=== PATIENT | female | born 1995 | race Caucasian/White ===

== ENCOUNTER 2016-10-11 19:02 | Emergency (ER) | payer BC ==
[~2016-10-11] VITALS: Ht 170.2 cm; Wt 127.0 kg
[~2016-10-11 19:02] MED LIST: ATIVAN0.5 MG PO; CARAFATE 1 GM TA1 G1 PO; CIPRO500 MG PO; DOXYCYCLINE 10100 MG PO; EDTA; FLAGYL500 MG PO; FLEXERIL PO; IBUPROFEN 600600 M1 PO; LEVOTHYROXIN0.025 MG PO; LEXAPRO 10 MG T10 M2 PO; MOBIC15 MG PO; NAPROSYN500 MG PO; NASONEX17 GM NASAL; NORCO 5-325 TA1 EACH PO; NORFLEX100 MG PO; PAXIL10 MG PO; PHENERGAN 25 MG25 M1 PO; VITAMIN D 5050000 I1 PO; ZANTAC 150MG T150 MG PO; [UNRECOGNIZED DRUG - REMARK]
[2016-10-11] MEDS ORDERED: TIROSINT25 MCG PO (19:20)
[2016-10-11] MEDS ORDERED: BYSTOLIC 5 MG5 M1 PO (19:21)
[2016-10-11 20:02] LABS: URINE BILIRUBIN NEGATIVE (Negative); URINE BLOOD NEGATIVE (Negative); URINE COLOR YELLOW; URINE GLUCOSE-RANDOM* NEGATIVE (Negative); URINE KETONES NEGATIVE (Negative); URINE NITRITE NEGATIVE (Negative); URINE PROTEIN (DIPSTICK) NEGATIVE (Negative); URINE UROBILINOGEN 0.2 E.U./dl (0.2-1.0)
[2016-10-11 20:03] LABS: HEMATOCRIT 38.8 % (37.0-47.0); MCV 82.7 fL (80.0-100.0)
[2016-10-11 20:04] LABS: BASOPHILS 0.7 % (0.0-2.0); EOSINOPHILS 1.5 % (0.0-3.0); HEMOGLOBIN 13.3 gm/dL (12.0-15.0); MCH 28.3 pg (26.0-34.0); MCHC 34.2 % (28.0-37.0); MONOCYTES 5.2 % (1.0-8.0); PLATELET COUNT 244 thou/uL (150-400); POLYS 61.6 % (36.0-66.0); RBC 4.69 mil/uL (4.20-5.00); RDW 13.2 % (10.5-14.5); WBC 14.4 thou/uL (4.0-11.0)
[2016-10-11 20:10] LABS: CALCIUM 8.8 mg/dL (8.5-10.1); CREATININE 0.7 mg/dL (0.6-1.3); POTASSIUM 4.9 mmol/L (3.5-5.1)
[2016-10-11 20:16] LABS: MANUAL DIFF NO
[2016-10-11] MEDS ORDERED: AMOXICILLIN500 M1 PO (20:24)
[2016-10-11 20:51] VITALS: BP 113/67
== END 2016-10-11 20:54 | disposition home or self-care (01) ==
LOC: ER 19:02
PROVIDERS: Nurse Practitioner
DX: H66.91 Otitis media, unspecified, right ear (principal); J06.9 Acute upper respiratory infection, unspecified; F41.9 Anxiety disorder, unspecified; G51.0 Bell's palsy; E06.3 Autoimmune thyroiditis

== ENCOUNTER 2017-04-22 23:14 | Emergency (ER) | payer BC ==
[~2017-04-22] VITALS: Ht 167.6 cm; Wt 127.0 kg
[~2017-04-22 23:14] MED LIST changes: +AMOXICILLIN500 M1 PO; +BYSTOLIC 5 MG5 M1 PO; +TIROSINT25 MCG PO
[2017-04-22] MEDS ORDERED: TIROSINT50 MCG PO (23:21)
[2017-04-23 00:03] LABS: URINE BILIRUBIN NEGATIVE (Negative); URINE BLOOD TRACE (Negative); URINE COLOR YELLOW; URINE GLUCOSE-RANDOM* NEGATIVE (Negative); URINE KETONES NEGATIVE (Negative); URINE NITRITE NEGATIVE (Negative); URINE PROTEIN (DIPSTICK) NEGATIVE (Negative)
[2017-04-23 00:45] VITALS: BP 124/81
== END 2017-04-23 00:45 | disposition home or self-care (01) ==
LOC: ER 23:14
PROVIDERS: Emergency Medicine
DX: N89.8 Other specified noninflammatory disorders of vagina (principal); T74.21XA Adult sexual abuse, confirmed, initial encounter; F41.9 Anxiety disorder, unspecified; G51.0 Bell's palsy; E05.90 Thyrotoxicosis, unspecified without thyrotoxic crisis or storm; E28.2 Polycystic ovarian syndrome; E06.3 Autoimmune thyroiditis; Y07.9 Unspecified perpetrator of maltreatment and neglect

== ENCOUNTER 2017-05-06 14:11 | Emergency (ER) | payer BC ==
[~2017-05-06] VITALS: Ht 167.6 cm; Wt 127.0 kg
[~2017-05-06 14:11] MED LIST changes: +TIROSINT50 MCG PO
[2017-05-06 14:39] LABS: URINE BILIRUBIN NEGATIVE (Negative); URINE BLOOD 3+ (Negative); URINE GLUCOSE-RANDOM* NEGATIVE (Negative); URINE KETONES NEGATIVE (Negative); URINE LEUKOCYTES-REFLEX NEGATIVE (Negative); URINE PROTEIN (DIPSTICK) NEGATIVE (Negative); URINE UROBILINOGEN 0.2 E.U./dl (0.2-1.0)
[2017-05-06 14:43] LABS: URINE COLOR REDDISH
[2017-05-06 14:44] LABS: CASTS None Seen /LPF (None Seen); CRYSTALS None Seen /LPF (None Seen); SQUAMOUS 0-3 Few /LPF (0-3); URINE RBC >20 Many /HPF (0-2); URINE WBC-REFLEX None Seen /HPF (0-5)
[2017-05-06 14:48] LABS: ABSOLUTE NEUTROPHILS 5.4 thou/uL (1.4-8.2); BASOPHILS 0.5 % (0.0-2.0); EOSINOPHILS 1.3 % (0.0-3.0); HEMATOCRIT 42.2 % (37.0-47.0); LYMPHOCYTES 25.7 % (24.0-44.0); MANUAL DIFF NO; MCH 28.6 pg (26.0-34.0); MCHC 33.1 g/dL (28.0-37.0); MCV 86.3 fL (80.0-100.0); MONOCYTES 5.6 % (1.0-8.0); PLATELET COUNT 254 thou/uL (150-400); POLYS 66.9 % (36.0-66.0); RBC 4.89 mil/uL (4.20-5.00); RDW 12.6 % (10.5-14.5); WBC 8.1 thou/uL (4.0-11.0)
[2017-05-06 15:00] LABS: CALCIUM 8.9 mg/dL (8.5-10.1); CREATININE 0.8 mg/dL (0.6-1.0); MAGNESIUM 1.9 mg/dL (1.8-2.4); POTASSIUM 4.4 mmol/L (3.5-5.1)
[2017-05-06 16:28] VITALS: BP 125/47
[2017-05-10 05:43] LABS: CHLAMYDIA TRACHOMATIS-PCR Negative (Negative); NEISSERIA GONORRHEA-PCR Negative (Negative)
== END 2017-05-06 16:31 | disposition home or self-care (01) ==
LOC: ER 14:11
PROVIDERS: Emergency Medicine
DX: T83.39XA Other mechanical complication of intrauterine contraceptive device, initial encounter (principal); F41.9 Anxiety disorder, unspecified; G51.0 Bell's palsy; E05.90 Thyrotoxicosis, unspecified without thyrotoxic crisis or storm; E55.9 Vitamin D deficiency, unspecified; E06.3 Autoimmune thyroiditis

== ENCOUNTER 2017-10-14 22:22 | Emergency (ER) | payer BC ==
[~2017-10-14] VITALS: Ht 167.6 cm; Wt 129.3 kg
[2017-10-14] MEDS ORDERED: KEFLEX500 M1 PO (22:44)
[2018-05-25] MEDS ORDERED: DOXYCYCLINE 10100 MG PO (08:12)
[2018-05-26] MEDS ORDERED: ONDANSETRON HCL4 M2 PO (18:19)
[2018-05-26] MEDS ORDERED: NAPROSYN500 MG PO (18:19)
== END 2017-10-15 00:50 | disposition home or self-care (01) ==
LOC: ER 22:22
DX: S61.201A Unspecified open wound of left index finger without damage to nail, initial encounter (principal); G51.0 Bell's palsy; F41.9 Anxiety disorder, unspecified; E03.9 Hypothyroidism, unspecified; E28.2 Polycystic ovarian syndrome; E06.3 Autoimmune thyroiditis; M35.9 Systemic involvement of connective tissue, unspecified; W26.0XXA Contact with knife, initial encounter; Y93.89 Activity, other specified; Y92.89 Other specified places as the place of occurrence of the external cause; Y99.2 Volunteer activity

== ENCOUNTER 2018-02-28 05:23 | Emergency (ER) | payer BC ==
[~2018-02-28] VITALS: Ht 167.6 cm; Wt 129.3 kg
--- NOTE | ~2018-02-28 | EKG ---
[place] [address] [facility] [place] [address] ELECTROCARDIOGRAM REPORT Name: PHIL GARCIA Room #: DEP [facility]#: [id number] Admission: 02/28/18 Attend Phys: Discharge: 02/28/18 Date of : [birth year] Report #: [id number] THIS REPORT FOR: //name// [facility] ED Test Date: 2018-02-28 Test Time: 05:28:17 Pat Name: PHIL BURRELL Department: Room: Gender: F Explosive Ordnance Disposal Specialist: Alexey CHAIDEZ : 1995 Requested By: Miah Cochran Order Number: [id number] MD: Finn Nassar Measurements Intervals [place] Rate: 62 P: 32 MD: 159 QRS: 19 QRSD: 100 T: 25 QT: 415 QTc: 422 Interpretive Statements Sinus rhythm No significant abnormality Compared to ECG 08/13/2016 10:25:36 Atrial premature complex(es) no longer present Electronically Signed On 02-28-2018 7:50:23 CDT by Finn Nassar [email or web address] <ELECTRONICALLY SIGNED> By: Finn Nassar MD, [facility] 02/28/18 0750 Finn Nassar MD, [facility] /EPI
[~2018-02-28 05:23] MED LIST changes: +KEFLEX500 M1 PO
[2018-02-28] MEDS ORDERED: TIROSINT75 MCG PO (05:28)
[2018-02-28] MEDS ORDERED: ANTI-ANXIETY (05:28)
[2018-02-28] MEDS ORDERED: NAPROSYN500 MG PO (05:51)
[2018-02-28] MEDS ORDERED: NORFLEX100 MG PO (05:51)
[2018-02-28 06:02] VITALS: BP 136/85
== END 2018-02-28 06:03 | disposition home or self-care (01) ==
LOC: ER 05:23
DX: M43.6 Torticollis (principal); F41.9 Anxiety disorder, unspecified; G51.0 Bell's palsy; E28.2 Polycystic ovarian syndrome; E06.3 Autoimmune thyroiditis; E05.90 Thyrotoxicosis, unspecified without thyrotoxic crisis or storm; Z91.018 Allergy to other foods

== ENCOUNTER 2018-05-21 08:23 | Emergency (ER) | payer BC ==
[~2018-05-21] VITALS: Ht 170.2 cm; Wt 132.4 kg
--- NOTE | ~2018-05-21 | EKG ---
[place] [address] [address] [facility] [place] [address] ELECTROCARDIOGRAM REPORT Name: JOSEPHILDelia JEAN Room #: REG [facility]#: [id number] Admission: 05/21/18 Attend Phys: Discharge: Date of : [birth year] Report #: [id number] THIS REPORT FOR: //name// [facility] ED Test Date: 2018-05-21 Test Time: 08:48:43 Pat Name: PHIL GARCIA Department: Room: Gender: F Community Relations Manager: Stacy SANTIAGO RN : 1995 Requested By: Kaila Petit Order Number: [id number] MD: Finn Nassar Measurements Intervals [place] Rate: 93 P: 30 IN: 148 QRS: 9 QRSD: 91 T: 22 QT: 341 QTc: 425 Interpretive Statements Sinus rhythm Normal tracing Compared to ECG 02/28/2018 05:28:17 No significant changes Electronically Signed On 05-21-2018 13:07:01 CDT by Finn Nassar [email or web address] <ELECTRONICALLY SIGNED> By: Finn Nassar MD, [facility] 05/21/18 1307 0848 7 Finn Nassar MD, FACC /EPI
[~2018-05-21 08:23] MED LIST changes: +ANTI-ANXIETY; +TIROSINT75 MCG PO
[2018-05-21 09:43] LABS: ABSOLUTE NEUTROPHILS 7.8 thou/uL (1.4-8.2); BASOPHILS 0.4 % (0.0-2.0); EOSINOPHILS 1.2 % (0.0-3.0); HEMOGLOBIN 13.8 gm/dL (12.0-15.0); LYMPHOCYTES 10.9 % (24.0-44.0); MCH 28.9 pg (26.0-34.0); MCHC 34.5 g/dL (28.0-37.0); MCV 83.9 fL (80.0-100.0); MONOCYTES 7.7 % (1.0-8.0); PLATELET COUNT 251 thou/uL (150-400); POLYS 79.8 % (36.0-66.0); RBC 4.77 mil/uL (4.20-5.00); RDW 12.8 % (10.5-14.5); WBC 9.7 thou/uL (4.0-11.0)
[2018-05-21 09:49] LABS: CALCIUM 9.4 mg/dL (8.5-10.1); POTASSIUM 3.8 mmol/L (3.5-5.1)
[2018-05-21] MEDS ORDERED: ADDERALL 20 MG20 M1 PO (10:38)
[2018-05-21] MEDS ORDERED: LEXAPRO 10 MG T10 M1 PO (10:40)
[2018-05-21] MEDS ORDERED: FLEXERIL PO (12:42)
[2018-05-21 12:58] VITALS: BP 132/68
== END 2018-05-21 13:15 | disposition home or self-care (01) ==
LOC: ER 08:23
PROVIDERS: Student in an Organized Health Care Education/Training Program
DX: M25.512 Pain in left shoulder (principal); R00.0 Tachycardia, unspecified; E66.01 Morbid (severe) obesity due to excess calories; F41.9 Anxiety disorder, unspecified; E28.2 Polycystic ovarian syndrome; E06.3 Autoimmune thyroiditis; E03.9 Hypothyroidism, unspecified; E05.90 Thyrotoxicosis, unspecified without thyrotoxic crisis or storm; Z68.42 Body mass index [BMI] 45.0-49.9, adult; Z91.018 Allergy to other foods

== ENCOUNTER 2018-09-14 05:27 | Emergency (ER) | payer BC, OTHER ==
[~2018-09-14] VITALS: Ht 170.2 cm; Wt 126.5 kg
[~2018-09-14 05:27] MED LIST changes: +ADDERALL 20 MG20 M1 PO; +LEXAPRO 10 MG T10 M1 PO; +ONDANSETRON HCL4 M2 PO
[2018-09-14 07:19] VITALS: BP 123/66
== END 2018-09-14 07:57 | disposition home or self-care (01) ==
LOC: ER 05:27
DX: M79.622 Pain in left upper arm (principal); F41.9 Anxiety disorder, unspecified; E28.2 Polycystic ovarian syndrome; E05.90 Thyrotoxicosis, unspecified without thyrotoxic crisis or storm; E06.3 Autoimmune thyroiditis; Z91.018 Allergy to other foods

== ENCOUNTER 2018-11-03 05:25 | Emergency (ER) | payer BC, OTHER ==
[~2018-11-03] VITALS: Ht 170.2 cm; Wt 127.0 kg
[2018-11-03] MEDS ORDERED: CEPACOL SORE T1 EAC7 PO (05:39)
[2018-11-03 05:50] VITALS: BP 173/76
== END 2018-11-03 05:51 | disposition home or self-care (01) ==
LOC: ER 05:25
DX: K14.3 Hypertrophy of tongue papillae (principal); F41.9 Anxiety disorder, unspecified; E28.2 Polycystic ovarian syndrome; E05.90 Thyrotoxicosis, unspecified without thyrotoxic crisis or storm; E06.3 Autoimmune thyroiditis; Z91.018 Allergy to other foods

== ENCOUNTER 2019-02-13 16:20 | Emergency (ER) | payer BC ==
[~2019-02-13] VITALS: Ht 170.2 cm; Wt 108.9 kg
[~2019-02-13 16:20] MED LIST changes: +CEPACOL SORE T1 EAC7 PO
[2019-02-13] MEDS ORDERED: SEROQUEL XR 20200 MG PO (16:34)
[2019-02-13 18:10] VITALS: BP 135/82
[2019-02-13] MEDS ORDERED: MOBIC7.5 MG PO (18:13)
--- NOTE | 2019-02-14 09:35 | EKG ---
[address] [address] ELECTROCARDIOGRAM REPORT Name: PHIL GARCIA [id number] ������������������ Admission: 02/13/19 ������������������ Attend Phys: Discharge: 02/13/19 ������������������ Date of : [birth year] Report #: [id number] ����������������������������������������������������������������� [id number] THIS REPORT FOR: //name// [facility] ED Test Date: 2019-02-13 Test Time: 16:44:04 Pat Name: PHIL GARCIA Department: Room: Gender: F Auricular Therapist: HAL : 1995 Requested By: Usama Sandoval Order Number: [id number] MD: Siddhartha Zhang Measurements Intervals [place] Rate: 64 P: 15 NV: 140 QRS: 25 QRSD: 80 T: 28 QT: 394 QTc: 407 Interpretive Statements Sinus rhythm Compared to ECG 05/21/2018 08:48:43 No significant changes Electronically Signed On 02-14-2019 9:35:32 CDT by Siddhartha Zhang [email or web address] ��������������������������������������������� <ELECTRONICALLY SIGNED> ���������������������������������������� By: Siddhartha Zhang MD ��������������������������������������������� 02/14/19 0935 1644 1644 Siddhartha Zhang MD /GELA
== END 2019-02-13 18:10 | disposition home or self-care (01) ==
LOC: ER 16:20
DX: R07.89 Other chest pain (principal); G51.0 Bell's palsy; E05.90 Thyrotoxicosis, unspecified without thyrotoxic crisis or storm; E53.8 Deficiency of other specified B group vitamins; E06.3 Autoimmune thyroiditis; Z91.018 Allergy to other foods

== ENCOUNTER 2019-06-08 08:05 | Emergency (ER) | payer BC ==
[~2019-06-08] VITALS: Ht 167.6 cm; Wt 112.5 kg
[~2019-06-08 08:05] MED LIST changes: +MOBIC7.5 MG PO; +SEROQUEL XR 20200 MG PO
[2019-06-08] MEDS ORDERED: SYNTHROID50 MCG PO (08:26)
[2019-06-08] MEDS ORDERED: WELLBUTRIN 100100 MG PO (08:27)
[2019-06-08] MEDS ORDERED: METHOCARBAMOL500 M2 PO (09:09)
[2019-06-08] MEDS ORDERED: NAPROSYN500 MG PO (09:09)
[2019-06-08 09:34] VITALS: BP 134/72
--- NOTE | 2019-06-10 14:04 | EKG ---
[address] [address] ELECTROCARDIOGRAM REPORT Name: PHIL GARCIA [id number] ������������������ Admission: 06/08/19 ������������������ Attend Phys: Discharge: 06/08/19 ������������������ Date of : [birth year] Report #: [id number] ����������������������������������������������������������������� [id number] THIS REPORT FOR: //name// [facility] ED Test Date: 2019-06-08 Test Time: 08:33:13 Pat Name: PHIL GARCIA Department: Room: Gender: F Plant Facilities Technician: HAL : 1995 Requested By: Miah Cochran Order Number: [id number] MD: Finn Nassar Measurements Intervals [place] Rate: 76 P: 28 MD: 154 QRS: 15 QRSD: 98 T: 22 QT: 380 QTc: 428 Interpretive Statements Sinus rhythm Normal tracing Compared to ECG 02/13/2019 16:44:04 No significant changes Electronically Signed On 06-10-2019 14:03:54 CDT by Finn Nassar [email or web address] ��������������������������������������������� <ELECTRONICALLY SIGNED> ���������������������������������������� By: Finn Nassar MD, [facility] ��������������������������������������������� 06/10/19 1403 0833 2 Finn Nassar MD, FACC /EPI
== END 2019-06-08 09:35 | disposition home or self-care (01) ==
LOC: ER 08:05
DX: M43.6 Torticollis (principal); R20.2 Paresthesia of skin; F41.9 Anxiety disorder, unspecified; E05.90 Thyrotoxicosis, unspecified without thyrotoxic crisis or storm; E28.2 Polycystic ovarian syndrome; E06.3 Autoimmune thyroiditis; Z91.018 Allergy to other foods